=== PATIENT | female | born 1935 | race Caucasian/White ===

== ENCOUNTER → 2018-01-02 | Outpatient (CLI) | payer MEDICARE, BC ==
[~2018-01-02] MED LIST: ALTOPREV20 M1 PO; CARISOPRODOL 3350 MG PO; CITRACAL + D C1 EACH; CRANBERRY500 M1 PO; D3 DOTS2000 UNIT; DITROPAN XL5 MG PO; EQL FLAXSEED O1 EACH; FISH OIL 1,0001 EAC5; FISH OIL 1,001000 M2 PO; FLUOXETINE HCL10 M1 PO; HYDROCODON-ACE1 EAC7 PO; LOPRESSOR25 PO; MYRBETRIQ25 MG PO; NABUMETONE 500500 M1 PO; ONE-A-DAY WOMENS PO; PERCOCET 5-3251 EACH PO; PRAVACHOL40 MG PO; PROBIOTIC1 EAC2 PO; TYLENOL P.M. E1 EAC3 PO; VICODIN 5-3001 EACH PO; VITAMIN B-12500 MCG PO
--- NOTE | 2018-02-05 10:00 | PAINCON ---
[address] [address] PAIN MANAGEMENT CONSULTATION Name: DINHDONELL J Room: [facility] Rebekah#: [id number] Admission: 01/02/18 Attend Phys: Alan Benavides MD Discharge: Date of : 33 Report #: [id number] THIS REPORT FOR: //name// CC: Aleks Barrow DO RODOLFO Benavides DATE OF SERVICE: 01/02/2018 FOLLOWUP COMPLAINT: Pain in the left hip, right knee and down the legs. HISTORY OF PRESENT ILLNESS: The patient is an 82-year-old female who has been followed by her primary physician. The patient has had pain and discomfort, which has been quite problematic. Uhrp-mmi-uffqtiz medications have not been helpful. She has been using Celebrex. Continues to find that her pain is 0 while sitting, but rise to the level of 8 when she is walking. She has a throbbing sensation in her low back with pain that radiates down into the left hip. She has had an epidural steroid injection at [facility] in the past. She noticed that reproduced her pain by about 70-80%. Unfortunately, the pain relief was short-lived, it was helpful for about a week. She has been ambulating with use of a cane because of her pain. Pain is exacerbated by walking, standing, going from a sitting to a standing position as well as with activities of daily living. She notes some improvement with use of medications, heat, rest and massage. She states she has been treated for osteoarthritis. Denies any bowel or bladder dysfunction as a result of this. ALLERGIES: PENICILLIN, SULFA, ETODOLAC-itching. CURRENT MEDICATIONS: Calcium/vitamin D3 2000 units, cranberry 500 mg capsules, vitamin B12 500 mcg 2500 mg daily, fish oil 1000 mg, fluoxetine 10 mg, hydrocodone 5/325 b.i.d., probiotic, lactobacillus, lovastatin 20 mg, metoprolol 25 mg b.i.d., Myrbetriq 25 mg, multivitamin, and nabumetone 500 mg. PAST MEDICAL HISTORY: 1. Cardiomegaly. 2. Bladder dysfunction. 3. Depression. 4. Osteoarthritis, generalized. 5. Mixed hyperlipidemia. PAST SURGICAL HISTORY: Cholecystectomy. SOCIAL HISTORY: She is retired, has not worked for quite some time. LABORATORY DATA: No new laboratory values [place] [address] PAIN MANAGEMENT CONSULTATION Name: DONELL DINH Edgar Room: [facility]#: [id number] Admission: 01/02/18 Attend Phys: Alan Benavides MD Discharge: Date of : 33 Report #: [id number] interview. PAIN CLINIC ASSESSMENT/PQRS: 1. History of osteoarthritis. The patient has osteoarthritic changes in her knee 2. Rheumatoid arthritis. The patient is not being treated for rheumatoid arthritis. 3. Height 5 feet 6 inches, weight 208 pounds, BMI is 33. 4. Vital signs: Blood pressure 149/82, heart rate 93, respiratory rate 16, room air saturation 94%, temperature 97.7. 5. Pain intensity 10/10 when the patient is up ambulating and walking, 0/10 while resting. 6. Fall risk. The patient did fall on her right knee about one year ago, has not fallen since then. 7. Blood thinner. The patient is not on a blood thinning medication. 8. History of hypertension. The patient has not been treated for hypertension. 9. Opioid therapy greater than 6 weeks. The patient is not on a chronic opioid medication. 10. Risk assessment tool - low risk for opioid use. 11. Functional assessment tool. 12. Recreational drug use. The patient denies use of recreational drugs. 13. Tobacco: The patient denies use of tobacco. 14. Alcohol: The patient denies use of alcoholic beverages. PHYSICAL EXAMINATION: GENERAL: The patient is a well-developed, well-nourished white female. Appears her stated age. She is alert and oriented x 3. HEENT: Normocephalic, atraumatic. Extraocular eye muscle intact. Sclerae nonicteric. Mucous membranes are moist. NECK: With good range of motion without JVD or adenopathy. HEART: Regular rate. S1, S2. LUNGS: Clear to auscultation without rhonchi or rales. ABDOMEN: Nontender, normal bowel sounds, nondistended. Upper extremity muscle strength is judged to be 4+/5 for the upper muscle strength. The patient without significant scoliosis or lordosis. The patient has pain and discomfort in the left hip area. Has pain and discomfort in her right knee. The patient ambulates with use of a cane. Use her hands go from sitting to a standing position. IMPRESSION: 1. History of osteoarthritis with some involvement in her knees as well as pain and discomfort in the hips. 2. Cardiomegaly. 3. Bladder dysfunction. 4. Depression. 5. Osteoarthritis, generalized. [address] [address] PAIN MANAGEMENT CONSULTATION Name: DONELL DINH Room: [facility] Nati#: [id number] Admission: 01/02/18 Attend Phys: Alan Benavides MD Discharge: Date of : 33 Report #: [id number] 6. Mixed hyperlipidemia. RECOMMENDATIONS: We discussed treatment options with the patient. At this juncture, she recently had epidural steroid injection. We will consider possibility of another injection in the future. At this point, the patient will try hydrocodone. She will start with 5/325 one p.o. b.i.d. Again, possibility of additional injections in the past exists. If her pain continues to be problematic, she may need to follow up with an orthopedic surgeon. Risks and benefits of opioid medications were discussed with the patient. They could include constipation, some problems with mentation. The patient will call us if she has any concerns with any of those problems. We would like to thank you for letting us participate in her care. We hope she continues to improve. <ELECTRONICALLY SIGNED> By: Alan Benavides MD 02/05/18 1000 [id number] [id number]. Sarath Benavides MD /[facility]
== END ==
LOC: M.PC 04:49
DX: M17.0 Bilateral primary osteoarthritis of knee (principal); I51.7 Cardiomegaly; E78.2 Mixed hyperlipidemia; M25.551 Pain in right hip; M25.552 Pain in left hip; N31.9 Neuromuscular dysfunction of bladder, unspecified; F32.9 Major depressive disorder, single episode, unspecified; Z79.899 Other long term (current) drug therapy